=== PATIENT | male | born 1985 | race Caucasian/White ===

== ENCOUNTER 2018-09-29 15:21 | Observation (INO) | payer MEDICAID, SELFPAY ==
[2016-09-09 18:21] VITALS: BMI 23.5
[2018-09-29 15:36] VITALS: BMI 23.8; BMI 23.9
[2018-09-29 15:48] VITALS: BP 112/64; PULSE 75; RESP 18; TEMP 36.9; O2SAT 98
[2018-09-29 15:51] VITALS: BP 112/64
--- NOTE | 2018-09-29 16:09 | HP.PCM_ITS ---
Problem List (1) Acute opioid withdrawal Status: Acute (2) Tobacco dependence Status: Chronic History of Present Illness Date of Admission: 09/29/18 Chief Complaint: Acute opiate withdrawal - 1 day The patient is a 32 year old M with past medical history of substance use disorder, uses IV heroine half to 1 g daily, nicotine dependence comes in for medical stabilization under the [facility] program. Patient admits to using heroin last one day before admission. Complains of hot and cold flashes, nausea, vomiting, diarrhea, feeling anxious with tremors. Denies any fever or chills, or chest pain or shortness of breath. He admits to bilateral numbness of the hands, not new, ongoing for more than 2 years, used to be in braces, was supposed to have surgery but has not been back to see the surgeon. Vitals on admission show temperature of 98.4F, heart rate 75, blood pressure 112/64, respiratory rate 18, SPO2 98% on room air. Past Medical History Past Medical History (Chronic Problems): Chronic Problems Heroin addiction (Chronic) Tobacco dependence (Chronic) Exposure to hepatitis C (Chronic) Allergies No Known Allergies Allergy (Verified 09/09/16 18:20) Home Medications: Ambulatory Orders Medication Instructions Recorded NK 09/29/18 Surgical History: no surgical history Psychiatric History: No pertinent psych hx Lives: With Family Smoking Status: Current every day smoker Tobacco Use: Cigarettes Alcohol: None Drugs: Heroin - *Family History Maternal History Items: - - Addiction Paternal History Items: - - addiction Review of Systems Constitutional: Reports: Weakness, Fatigue. Denies: Anorexia, Chills, Fever, Weight Change Eyes: Denies: Blurred vision, Cataracts, Conjunctivae Inflammation, Double vision, Pain, Redness HEENT: Denies: Head Aches, Hearing Changes, Sinus Congestion, Sinus Drainage, Sore Throat Cardiovascular: Denies: Chest Pain, Claudication, Chest Tightness, Orthopnea, P alpitations, Paroxysmal Noc. Dyspnea Respiratory: Denies: Cough, Shortness of Breath, Shortness of breath at rest, Shortness of breath upon exertion, Sputum production, Wheezing Gastrointestinal: Reports: Diarrhea, Nausea, Vomiting. Denies: Abdominal Pain, Constipation Genitourinary: Denies: Dysuria, Frequency, Incontinence, Nocturia Musculoskeletal: Denies: Joint Pain, Joint stiffness, Joint swelling, Joint Tenderness Skin: Denies: Pruritis, Rash, Wounds Neurological: Denies: Numbness, Tingling, Focal weakness Psychiatric: Denies: Anxiety, Depression, Homicidal Ideations, Suicidal Ideations Hematologic/ Lymphatic: Denies: Easy Bruising, Easy Bleeding VTE Information - Inpt Only VTE Present on Admission: No VTE Pharm Prophylaxis ordered?: Yes Patient Problems: Active and Suspected Problems Acute opioid withdrawal (Acute) - Physical Exam General: Alert, Oriented x3, Cooperative, - - appears anxious, not pale, not jaundiced HEENT: Atraumatic, PERRLA, EOMI, Normocephalic Oral: Moist Mucosa Neck: Supple, No JVD, Negative Carotid Bruits Lungs: Clear to auscultation, Normal air movement Cardiovascular: Regular rate, Regular Rhythm, Normal S1, Normal S2, No murmurs Abdomen: Bowel Sounds Present, Soft, Non Tender, Non-Distended, No Hepato- splenomegaly Extremities: No edema Skin: No rashes, No breakdown Musculoskeletal: No Tenderness to Palpation of Joints or Extremities Neurological: Cranial nerves II-XII grossly intact, Motor Exam 5/5 strength throughout, - - Numbness in bilateral hands Psych/Mental Status: Normal Affect, Appropriate Vital Signs Temp Pulse Resp BP Pulse Ox 98.4 F 75 18 112/64 98 09/29/18 15:48 09/29/18 15:48 09/29/18 15:48 09/29/18 15:51 09/29/18 15:48 Oxygen Delivery Method Room Air Weight: 77.6 kg Body Mass Index (BMI) 23.8 Assessment/Plan All Active Problems Acute opioid withdrawal (Acute) Heroin withdrawal (Acute) 32 year old M with past medical history of polysubstance use disorder, uses IV heroine half to 1 g daily, nicotine dependence comes in for medical stabilization under the [facility] program. 1. Acute opiate withdrawal, admitting CINA score is 15, vitals are stable Plan: Admit to MedSurg, urine tox, continue on a [facility] protocol, continue to monitor vitals closely. 2. Nicotine dependence, on replacement 3. Anxiety and depression, situational, related to drug withdrawal, will continue to monitor, continue as needed meds. 4. Chronic Hep C, will need to be followed up in the outpatient 5. DVT PPx- early ambulation Code Visit Inpatient E&M: 31494 Init Hosp L2
--- NOTE | 2018-09-29 16:31 | NEWVISION ---
Patient has rehabilitation planned immediately post discharge at [facility]12 in [facility]. Patient's mother to provide transportation upon discharge. Patient has appointment to establish care with Janie Yip NP in [place] with appointment scheduled for October 13 at 2pm. patient to request referral for carpal tunnel / ortho appt at that time.
[2018-09-29] MEDS: Buprenorphine HCl 2 MG TAB.SUBL 4 MG SL (16:40)
[2018-09-29] MEDS: Dicyclomine 10 MG Capsule 20 MG PO (16:40)
[2018-09-29] MEDS: Ibuprofen 400 MG Tablet PO (16:40)
[2018-09-29] MEDS: Methocarbamol 750 MG Tablet PO (16:40)
[2018-09-29] MEDS: hydrOXYzine PAM 25 MG Capsule 50 MG PO (16:40)
[2018-09-29] MEDS: cloNIDine HCl 0.1 MG Tablet PO (16:41)
[2018-09-29 17:11] LABS: Absolute Lymphocyte Count 2.77 X10^3/ul (0.83-4.51); Eosinophil# 0.04 X10^3/uL; Eosinophils% 0.4 % (0-5); Hematocrit 45.1 % (40-54); Hemoglobin 15.7 g/dl (13.0-16.5); Lymphocyte # 2.77 X10^3/ul (4.0); Lymphocyte % 26.8 % (19-41); Mean Corp Hgb Conc 34.8 g/gl (32-36); Mean Corpuscular Hgb 28.5 pg (27.0-32.0); Mean Corpuscular Volume 81.9 fL (80-94); Mean Platelet Vol. 9.7 fl (6.2-12.0); Monocyte% 4.8 % (0-10); Neutrophil # 7.01 X10^3/uL (2.7-7.7); Neutrophil % 67.8 % (47-70); Platelet Count 238 K/mm3 (150-450); RBC Distribution Width CV 12.7 % (11.6-14.6); RBC Distribution Width SD 38.1 fl (35.1-43.9); Red Blood Count 5.51 M/mm3 (4.6-6.2); White Blood Count 10.3 K/mm3 (4.4-11.0)
[2018-09-29] MEDS: Ondansetron 8 MG Tablet PO (17:17)
[2018-09-29 17:19] LABS: Amphetamine Urine VISTA NEGATIVE (<1000 ng/mL); Barbiturate Urine VISTA NEGATIVE (< 200 ng/mL); Benzodiazepine Urine VISTA NEGATIVE (< 200 ng/mL); Cocaine Urine VISTA NEGATIVE (< 300 ng/mL); Ecstacy Urine VISTA NEGATIVE (< 500 ng/mL); Methadone Urine VISTA NEGATIVE (< 300 ng/mL); PCP Urine VISTA NEGATIVE (< 25 ng/mL); THC Urine VISTA NEGATIVE (< 50 ng/mL); Vista UDS pH Range 5
[2018-09-29 17:23] LABS: POSITIVE COUNT NO; POSITIVE DIFFERENTIAL NO; POSITIVE MORPHOLOGY NO
[2018-09-29 17:30] LABS: ALB/GLOB Ratio 0.9 RATIO (0.9-2.4); AST(SGOT) 32 U/L (15-37); Alanine Aminotransfer ALT/SGPT 42 U/L (16-61); Albumin, Serum 3.8 g/dL (3.2-5.0); Alkaline Phosphatase 86 U/L (45-117); Anion Gap 7 (5-15); BUN 9 mg/dL (7-18); BUN/Creat Ratio 10.5 RATIO (10-20); Calcium,Total 8.9 mg/dL (8.5-10.1); Chloride 103 mmol/L (98-107); Creatinine, Serum 0.86 mg/dL (0.70-1.30); EST Glomerular Filtration Rate 108 mL/min (>60); Est Glom Filt Rate - Afr Amer 130 mL/min (>60); Estimated Creatinine Clearance 128.91 ml/min; Globulin 4.2 g/dL (2.2-4.2); Glucose 131 mg/dL (74-106); Potassium 3.8 mmol/L (3.5-5.1); Sodium Level 135 mmol/L (136-145)
[2018-09-29 18:00] VITALS: BP 105/52; PULSE 76; RESP 18; TEMP 36.8; O2SAT 96
[2018-09-29 22:20] VITALS: BP 94/52; PULSE 78; RESP 14; TEMP 36.4
[2018-09-29] MEDS: traZODone 50 MG Tablet PO (22:26)
[2018-09-30] MEDS: Buprenorphine HCl 2 MG TAB.SUBL 4 MG SL ×2 (00:12→07:57)
[2018-09-30 02:30] VITALS: BP 105/61; PULSE 62; RESP 16; TEMP 36.6
[2018-09-30] MEDS: Ibuprofen 400 MG Tablet PO (02:53)
[2018-09-30] MEDS: hydrOXYzine PAM 25 MG Capsule 50 MG PO (02:53)
[2018-09-30] MEDS: Methocarbamol 750 MG Tablet PO (02:53)
[2018-09-30 06:30] VITALS: BP 118/64; PULSE 74; RESP 16; TEMP 36.9
[2018-09-30] MEDS: Pramipexole Di-HCl 0.25 MG Tablet PO (06:44)
[2018-09-30] MEDS: Dicyclomine 10 MG Capsule 20 MG PO (06:44)
[2018-09-30] MEDS: cloNIDine HCl 0.1 MG Tablet PO (06:44)
[2018-09-30] MEDS: Ondansetron 8 MG Tablet PO (06:44)
[2018-09-30 08:00] VITALS: BP 122/62; PULSE 83; RESP 16; TEMP 36.9; O2SAT 98
--- NOTE | 2018-09-30 11:12 | PN_ITS ---
Patient Problems: Active and Suspected Problems Acute opioid withdrawal (Acute) Subjective: still with myalgias, abdominal cramps, rhinitis, Nausea. Vitals/I&O's: Vital Signs Temp Pulse Resp BP Pulse Ox 36.9 C 83 16 122/62 H 98 09/30/18 08:00 09/30/18 08:00 09/30/18 08:00 09/30/18 08:00 09/30/18 08:00 Oxygen Delivery Method Room Air Weight: 77.6 kg Body Mass Index (BMI) 23.8 Intake and Output for Last 24 Hours 09/28/18 09/29/18 09/30/18 23:59 23:59 23:59 Intake Total 420 / 420 700 / 700 Balance 420 / 420 700 / 700 General: Alert, - - afebrile. anxious. writhing. HEENT: Atraumatic, Normocephalic Oral: Moist Mucosa, No Gingival or Mucosal Lesions/ Ulcerations Neck: No Nodes, Thyroid Normal Size and Texture Lungs: Clear to auscultation, Normal air movement, No rhonchi, No wheeze Cardiovascular: Regular rate, Regular Rhythm, Normal S1, Normal S2, No murmurs Abdomen: Bowel Sounds Present, Soft, Non Tender, Non-Distended, No Hepato- splenomegaly Extremities: No edema, No Calf Tenderness Skin: No rashes, No breakdown Musculoskeletal: No Tenderness to Palpation of Joints or Extremities, No Muscle Wasting Psych/Mental Status: Appropriate, Flat Affect Laboratory Results 09/29/18 16:50: WBC 10.3, RBC 5.51, Hgb 15.7, Hct 45.1, MCV 81.9, MCH 28.5, MCHC 34.8, RDW 12.7, RDW Differential 38.1, Plt Count 238, MPV 9.7, Immature Gran % (Auto) 0.200, Neut % (Auto) 67.8, Lymph % (Auto) 26.8, Titus % (Auto) 4.8, Eos % (Auto) 0.4, Baso % (Auto) 0.0, Absolute Neuts (auto) 7.0, Absolute Lymphs (auto) 2.77, Total Counted Not Reportable 09/29/18 16:50: Sodium 135 L, Potassium 3.8, Chloride 103, Carbon Dioxide 25.0, Anion Gap 7, BUN 9, Creatinine 0.86, Estim Creat Clear Calc 128.91, Est GFR (MDRD) Af Amer 130, Est GFR (MDRD) Non-Af 108, BUN/Creatinine Ratio 10.5, Glucose 131 H, Calcium 8.9, Total Bilirubin 0.50, AST 32, ALT 42, Alkaline Phosphatase 86, Total Protein 8.0, Albumin 3.8, Globulin 4.2, Albumin/Globulin Ratio 0.9 09/29/18 16:50: Urine Opiates Screen POSITIVE H, Urine Methadone Screen NEGATIVE, Ur Barbiturates Screen NEGATIVE, Ur Phencyclidine Scrn NEGATIVE, Ur Amphetamines Screen NEGATIVE, U Methamphetamin-MDMA NEGATIVE, U Benzodiazepines Scrn NEGATIVE, Urine Cocaine Screen NEGATIVE, U Cannabinoids Screen NEGATIVE, Ur Drug Screen Comment Current Medications Acetaminophen (Tylenol) 650 mg PO Q6H PRN PRN PRN Reason: Mild Pain (1-3)/Temp > 100.7 F Albuterol Sulfate (Ventolin Aerosols) 2.5 mg INHALATION Q2H PRN PRN PRN Reason: Shortness of Breath/Wheezing Bisacodyl (Dulcolax) 5 mg PO DAILY PRN PRN PRN Reason: Constipation Buprenorphine HCl (Buprenorphine Hcl) 4 mg SL Q8H FIDENCIO; Taper Stop: 10/02/18 19:59 Last Admin: 09/30/18 07:57 Dose: 4 mg Clonidine (Catapres) 0.1 mg PO Q2H PRN PRN PRN Reason: Hot/Cold Sweats or Anxiety Last Admin: 09/30/18 06:44 Dose: 0.1 mg Dextrose (D50w Syringe) 0 gm IV X1 PRN; Protocol PRN Reason: Hypoglycemia Dicyclomine HCl (Bentyl) 20 mg PO Q6H PRN PRN PRN Reason: Abdomnial Discomfort Last Admin: 09/30/18 06:44 Dose: 20 mg Glucagon () 1 mg IM .X1 PRN PRN Reason: Hypoglycemia Guaifenesin (Robitussin) 20 ml PO Q4H PRN PRN PRN Reason: COUGH Hydroxyzine Pamoate (Vistaril Pamoate Capsule) 50 mg PO Q6H PRN PRN PRN Reason: Mild Anxiety Last Admin: 09/30/18 02:53 Dose: 50 mg Ibuprofen (Motrin) 400 mg PO Q4H PRN PRN PRN Reason: Mild Pain (1-3)/Temp > 100.7 F Last Admin: 09/30/18 02:53 Dose: 400 mg Methocarbamol (Methocarbamol) 750 mg PO Q6H PRN PRN PRN Reason: Muscle Aches Last Admin: 09/30/18 02:53 Dose: 750 mg Nicotine (Nicoderm Cq (Pbkc)) 21 mg TRANSDERM. DAILY FIDENCIO Last Admin: 09/29/18 16:39 Dose: 21 mg Nicotine Polacrilex (Rugby Nicotine (Bkc)) 2 mg PO Q2H PRN PRN PRN Reason: Nicotine Craving Ondansetron HCl (Zofran) 8 mg PO Q8H PRN PRN PRN Reason: NAUSEA/VOMITING Last Admin: 09/30/18 06:44 Dose: 8 mg Pramipexole Dihydrochloride (Mirapex) 0.25 mg PO Q12H PRN PRN PRN Reason: Restless Legs Last Admin: 09/30/18 06:44 Dose: 0.25 mg Senna/Docusate Sodium (Senokot-S, Isabel-Colace) 2 tablet PO BID PRN PRN PRN Reason: Constipation Trazodone HCl (Desyrel) 50 mg PO QHS FIDENCIO Last Admin: 09/29/18 22:26 Dose: 50 mg Medical Necessity - Tobacco Use Smoking Status: Current every day smoker Tobacco Use: Cigarettes Assessment/Plan All Active Problems Acute opioid withdrawal (Acute) Heroin withdrawal (Acute) 1. Acute heroin withdrawal * ongoing * continue buprenorphine taper * pt advised to contact nursing for medication to help alleviate somatic complaints from WD 2. VTE proph: not indicated. Low risk. Ambulation. Code Visit Inpatient E&M: 21113 Subs Hosp L2
[2018-09-30 11:17] VITALS: BP 122/66; PULSE 60; RESP 16; TEMP 36.7; O2SAT 99
--- NOTE | 2018-09-30 12:08 | NURSING ---
pt left ama, pt signed paperwork
--- NOTE | 2018-09-30 13:50 | PCM.DC.SUM ---
Discharge Date and Diagnosis - Problem List Patient Problems: Active and Suspected Problems Acute opioid withdrawal (Acute) Date of Admission: 09/29/18 Date of Discharge: 09/30/18 - Secondary Discharge Diagnosis Chronic Problems Heroin addiction (Chronic) Tobacco dependence (Chronic) Exposure to hepatitis C (Chronic) Hospital Course and Treatment Operations: None Procedures: None Summary of Care Provided: The patient is a 32 year old M presents for receiving treatment for acute heroin withdrawal. Patient was started on buprenorphine as well as other medication to help with somatic complaints. Patient was still having issues with withdrawal but was overall stable. Patient left AGAINST MEDICAL ADVICE. [] Patient Problems: Active and Suspected Problems Acute opioid withdrawal (Acute) - Physical Exam Vital Signs Temp Pulse Resp BP Pulse Ox 36.7 C 60 16 122/66 H 99 09/30/18 11:17 09/30/18 11:17 09/30/18 11:17 09/30/18 11:17 09/30/18 11:17 Oxygen Delivery Method Room Air Weight: 77.6 kg Body Mass Index (BMI) 23.8 Intake and Output for Last 24 Hours 09/28/18 09/29/18 09/30/18 23:59 23:59 23:59 Intake Total 420 / 420 1100 / 1100 Balance 420 / 420 1100 / 1100 Laboratory Tests Past 24 Hrs 09/29/18 09/29/18 09/29/18 16:50 16:50 16:50 WBC 10.3 RBC 5.51 Hgb 15.7 Hct 45.1 MCV 81.9 MCH 28.5 MCHC 34.8 RDW 12.7 RDW Differential 38.1 Plt Count 238 MPV 9.7 Immature Gran % (Auto) 0.200 Neut % (Auto) 67.8 Lymph % (Auto) 26.8 Mccreary % (Auto) 4.8 Eos % (Auto) 0.4 Baso % (Auto) 0.0 Absolute Neuts (auto) 7.0 Absolute Lymphs (auto) 2.77 Total Counted Not Reportable Sodium 135 L Potassium 3.8 Chloride 103 Carbon Dioxide 25.0 Anion Gap 7 BUN 9 Creatinine 0.86 Estim Creat Clear Calc 128.91 Est GFR (MDRD) Af Amer 130 Est GFR (MDRD) Non-Af 108 BUN/Creatinine Ratio 10.5 Glucose 131 H Calcium 8.9 Total Bilirubin 0.50 AST 32 ALT 42 Alkaline Phosphatase 86 Total Protein 8.0 Albumin 3.8 Globulin 4.2 Albumin/Globulin Ratio 0.9 Urine Opiates Screen POSITIVE H Urine Methadone Screen NEGATIVE Ur Barbiturates Screen NEGATIVE Ur Phencyclidine Scrn NEGATIVE Ur Amphetamines Screen NEGATIVE U Methamphetamin-MDMA NEGATIVE U Benzodiazepines Scrn NEGATIVE Urine Cocaine Screen NEGATIVE U Cannabinoids Screen NEGATIVE Ur Drug Screen Comment Home Medications: Medications to take at Discharge NK 09/29/18 Primary Care Physician: Care Physician,No Primary [Primary Care Provider] - Disposition: Against Medical Advice Minutes spent on discharge:: 25 Medical Necessity - Tobacco Use Smoking Status: Current every day smoker Tobacco Use: Cigarettes Meaningful Use Info Meaningful Use Diagnoses (Choose all that apply): None applicable Code Visit Inpatient E&M: 948[address] [facility]
== END 2018-09-30 12:05 | disposition left against medical advice (07) | DRG 770 ==
PROVIDERS: Admitting Provider Internal Medicine
DX: F11.23 Opioid dependence with withdrawal (principal); F17.210 Nicotine dependence, cigarettes, uncomplicated; B18.2 Chronic viral hepatitis C
CPT/HCPCS: 36415; 80053; 80307; 85025; 99218; G0378; G0379